=== PATIENT | female | born 1960 | race Caucasian/White ===

== ENCOUNTER → 2022-03-18 | Emergency (ER) | payer BC, MEDICAID ==
[~2022-03-18] VITALS: Ht 162.6 cm; Wt 61.4 kg
[~2022-03-18] MED LIST: CYCL-1 PO; ketorolac trometh. 30mg/ml inj. IM ONE; ketorolac tromethamine 15mg/ml inj. IM ONE
[2022-03-18 11:04] VITALS: BP 131/72
== END | disposition home or self-care (01) ==
LOC: ER 10:10
DX: M79.604 Pain in right leg (principal); M25.561 Pain in right knee; M54.50 Low back pain, unspecified; G89.29 Other chronic pain; Z88.6 Allergy status to analgesic agent; Z88.0 Allergy status to penicillin; Z79.899 Other long term (current) drug therapy
CPT/HCPCS: 96372; 99284; J1885

== ENCOUNTER 2023-07-18 09:36 | Emergency (ER) | payer BC, MEDICAID ==
[~2023-07-18] VITALS: Ht 165.1 cm; Wt 120.0 kg
[~2023-07-18 09:36] MED LIST changes: -ketorolac trometh. 30mg/ml inj. IM ONE; -ketorolac tromethamine 15mg/ml inj. IM ONE
[2023-07-18 09:44] VITALS: TEMP 97.8
[2023-07-18 10:16] LABS: EOSINOPHILS % (AUTO) 0.2 % (0-6); MEAN PLATELET VOLUME 6.8 FL (7.4-10.4)
[2023-07-18 10:18] LABS: BASOPHILS # (AUTO) 0.1 X10'3 (0-0.2); BASOPHILS % (AUTO) 0.5 % (0-1); HEMATOCRIT 41.9 % (35.0-45.0); MEAN CORPUSCULAR HEMOGLOBIN 30.5 PG (27.0-31.0); MEAN CORPUSCULAR HGB CONC 33.5 g/dL (33.0-36.5); MONOCYTES # (AUTO) 0.5 X10'3 (0-0.9); MONOCYTES % (AUTO) 4.6 % (2-12); NEUTROPHILS # (AUTO) 9.3 X10'3 (1.8-7.7); NEUTROPHILS % (AUTO) 77.7 % (42-75); PLATELET COUNT 569 X10'3 (140-440); RED CELL DISTRIBUTION WIDTH 14.4 % (11.5-14.5)
[2023-07-18 10:26] LABS: ALBUMIN 3.4 G/DL (3.4-5.0); ANION GAP 13 (8-16); BLOOD UREA NITROGEN 13 MG/DL (7-18); BUN/CREATININE RATIO 15.9 (10.0-20.0); CALCIUM 9.3 MG/DL (8.5-10.1); CHLORIDE 101 MMOL/L (99-107); CREATININE 0.82 MG/DL (0.40-0.90); GLUCOSE 161 MG/DL (70-104); POTASSIUM 3.4 MMOL/L (3.5-5.1); SODIUM 140 MMOL/L (135-145); TOTAL CARBON DIOXIDE 26.4 MMOL/L (24-32); eCRCL 64 ML/MIN; eGFR 71 ML/MIN
[2023-07-18 13:41] LABS: BILIRUBIN,URINE NEGATIVE (Neg); COLOR,URINE YELLOW (Yellow); GLUCOSE, URINE NEGATIVE (Neg); KETONES,URINE NEGATIVE (Neg); LEUKOCYTE ESTERASE ,URINE NEGATIVE (Neg); NITRITES, URINE NEGATIVE (Neg); OCCULT BLOOD,URINE NEGATIVE (Neg); PH,URINE 6.5 (4.8-8.0); PROTEIN,URINE 30 mg/dl (Neg); UROBILINOGEN,URINE 0.2 E.U/dL (0.2-1.0)
[2023-07-18 13:44] LABS: CLARITY,URINE SLIGHTLY CLOUDY (Clear); UA COLLECTION TYPE VOIDED
[2023-07-18 13:50] LABS: RBC,URINE NONE SEEN /HPF (0-2)
[2023-07-18 13:51] LABS: BACTERIA,URINE FEW /HPF (Neg); MUCUS STRANDS FEW /LPF (Neg); SQUAMOUS EPITHELIAL CELL,UR FEW /LPF (FEW)
[2023-07-18 13:58] LABS: URINE AMPHETAMINE SCREEN POSITIVE (Neg); URINE BARBITUATE SCREEN NEGATIVE (Neg); URINE BENZODIAZEPINES SCREEN NEGATIVE (Neg); URINE CANNABINOID SCREEN NEGATIVE (Neg); URINE COCAINE SCREEN NEGATIVE (Neg); URINE METHADONE SCREEN NEGATIVE (Neg); URINE OPIATE SCREEN NEGATIVE (Neg); URINE PHENCYCLIDINE SCREEN NEGATIVE (Neg)
[2023-07-18] MEDS ORDERED: CEFD300C3 PO (14:22)
[2023-07-18 16:25] VITALS: BP 139/76; PULSE 71; RESP 18; O2SAT 98
== END 2023-07-18 16:00 | disposition home or self-care (01) ==
LOC: ER 09:37
DX: N39.0 Urinary tract infection, site not specified (principal); Z88.0 Allergy status to penicillin; Z88.8 Allergy status to other drugs, medicaments and biological substances; G89.29 Other chronic pain; M54.9 Dorsalgia, unspecified; Z90.710 Acquired absence of both cervix and uterus; Z59.00 Homelessness unspecified
CPT/HCPCS: 36415; 80048; 80305; 81001; 85025; 93005; 99284

== ENCOUNTER 2023-11-04 09:56 | Emergency (ER) | payer BC, MEDICAID ==
[~2023-11-04] VITALS: Ht 165.1 cm; Wt 50.0 kg
[2023-11-04] MEDS: TETanus/Pertussis (Acell)/Diphther VAC/PF (Tdap-Adult) 0.5ml syringe IMVAC ONE (10:56)
[2023-11-04] MEDS ORDERED: SULF1TAB49 PO (11:13)
[2023-11-04 11:47] VITALS: BP 148/92; PULSE 92; RESP 16; TEMP 97.8; O2SAT 99
== END 2023-11-04 11:51 | disposition home or self-care (01) ==
LOC: ER 09:57
DX: S60.421A Blister (nonthermal) of left index finger, initial encounter (principal); G89.29 Other chronic pain; M54.9 Dorsalgia, unspecified; Z90.710 Acquired absence of both cervix and uterus; Z72.89 Other problems related to lifestyle; Z98.890 Other specified postprocedural states; Z59.00 Homelessness unspecified; Z56.0 Unemployment, unspecified; Z88.8 Allergy status to other drugs, medicaments and biological substances; Z88.0 Allergy status to penicillin; X58.XXXA Exposure to other specified factors, initial encounter; Y93.89 Activity, other specified; Y92.89 Other specified places as the place of occurrence of the external cause; Y99.8 Other external cause status
CPT/HCPCS: 10060; 87070; 87077; 87186; 90471; 90715; 99283

== ENCOUNTER 2024-07-15 17:40 | Emergency (ER) | payer BC, MEDICAID ==
[~2024-07-15] VITALS: Ht 167.6 cm; Wt 50.0 kg
--- NOTE | 2024-07-15 19:45 | Physician Documentation ---
History of Present Illness ~ Chief Complaint: Knee Pain Stated Complaint: RT KNEE PAIN/BACK PAIN Time Seen by MD: 19:08 OK to notify your PCP?: Yes Primary Medical Doctor: NONE Source: patient Mode of Arrival: POV Exam Limitations: no limitations HPI This is a 63-year-old female who comes in complaining of right knee pain. The patient states this has been an ongoing issue for the past six years and she was had multiple injuries to the area. She was at [facility] a few nights ago in his states nothing it was done. She has pain with ambulation and bending of the knee secondary to pain. She also states she has a hard time sleeping because of the pain. Tetanus witin 5 years: No Medication Reconciliation Allergies: Coded Allergies: NSAIDS (Non-Steroidal Anti-Inflamma (Verified Allergy, Unknown, UPSET STOMACH, 03/18/22) Penicillins (Verified Allergy, Unknown, 03/18/22) aspirin (Verified Allergy, Unknown, 03/18/22) ibuprofen (Verified Allergy, Unknown, UPSET STOMACH, 03/18/22) Scheduled PRN Cyclobenzaprine* (Cyclobenzaprine*), 1 TAB PO Q8H PRN for pain Past Medical History Past Medical History: Chronic Back Pain Past Surgical History: noncontributory, other Other Past Surgical History: Umbilical hernia repair and partial hysterectomy years ago Alcohol Use: Occasionally Drug Use: none Lives In: Homeless Occupation: unemployed Physical Exam Vital Signs: Temperature: 98.2, Source: Temporal, Heart Rate: 82, Respiratory Rate: 14, BP: 118/64, Pulse Oximetry: 92, Weight: 50.000 Oxygen Flow Rate: 0 Pulse Oximetry Reflects: adequate oxygenation General Appearance: alert, WD/WN, no apparent distress Knees To inspection of the right knee there is an obvious large joint effusion. Positive balloon sign. No change in overlying skin color or temperature. The knee isn't warm to palpation. This deformity to palpation of the mediolateral joint line. Patella tendon is intact and patellas an appropriate place without crepitus or deformity. Negative Mckayla's. Negative laxity or tenderness with valgus varus stress. Procedures Procedures Right knee joint aspiration Ultrasound Procedure Note After verbal consent from the patient understood draped, prepped in sterile procedure I found my landmark measuring 1 cm up and 1 cm lateral from the lateral curvature of the patella. I marked with the area and cleansed the outer skin with a Betadine swabs x3. I anesthetized the overlying skin with 1% lidocaine with epinephrine. I then introduced a 18 gauge needle into the knee and aspirated 85 cc of clear straw-colored fluid. I then covered with the puncture wound with a Band-Aid and wrapped the knee in an Gus wrap. The patient tolerated the procedure well and got immediate relief from pain. Progress Results/Orders Reviewed/noted all lab results: Yes Results/Orders Orders - THOMAS DAVIS Laceration/I&D Tray Set Up (07/15/24 19:41) Completed Orders - THOMAS DAVIS Lidocaine 1% W/Epi 1:100,000 (Xylocaine (07/15/24 19:45) Medications Received in ER Medications (Trade) Dose Ordered Sig/Stephany Route PRN Reason Start Time Stop Time Status Last Admin Dose Admin (Xylocaine 1%-EPI 1:100,000) 20 ml ONCE ONCE SQ 07/15/24 19:45 07/15/24 19:46 DC 07/15/24 19:54 20 ML Vital Signs 07/15/24 17:46 Temp 98.2 Pulse 82 Resp 14 B/P (MAP) 118/64 Pulse Ox 92 O2 Flow Rate 0 Medical Decision Making Findings I aspirated 85 cc of clear straw-colored fluid from the knee. I did not send it off for joint analysis as this has been an ongoing issue for the patient and there was nothing to indicate infection or even gout at this point. There was no overlying erythema or warmth of the skin. The patient got relief from pain. I placed a Band-Aid over the puncture wound and wrapped with a need an Gus wrap. I instructed the patient was take Tylenol for her pain as she states she is all ergic to NSAIDs. Elevate the knee frequently and apply warm compresses. Follow up with the primary care physician for recheck in the next one or two days and return to the ER for any worsening or acute issues. Additional Comment Chronic right knee pain. Osteoarthritis of the right knee. Internal derangement of the right knee. Meniscus injury of the right knee. Right knee effusion. Septic arthritis. Gout. Pseudogout Departure Disposition: 01 HOME / SELF CARE / HOMELESS Impression: Primary Impression: Effusion of knee Condition: Stable Discharge Instructions: Knee Effusion Additional Instructions: Keep the Gus wrap on for compression. Take Tylenol for discomfort. Elevate the knee frequently and apply warm compresses to the area. Follow up with the primary care physician for recheck in the next couple of days and return to the ER for any worsening or concerning symptoms. Referrals: NO PRIMARY CARE PROVIDER (PCP) Signature Scribe Signature: No scribe Attestation: The note accurately reflects work and decisions made by me.Thomas THOMPSON 07/15/24 20:31 THOMAS DAVIS Jul 15, 2024 19:45
[2024-07-15] MEDS: LIDOcaine 1% W/epiNEPHrine 1:100,000 20ml vial SQ ONE (19:54)
[2024-07-15 21:13] VITALS: BP 116/62; PULSE 80; RESP 18; TEMP 98.6; O2SAT 99
== END 2024-07-15 21:14 | disposition home or self-care (01) ==
LOC: ER 17:41
DX: M25.461 Effusion, right knee (principal); Z88.0 Allergy status to penicillin; Z88.6 Allergy status to analgesic agent
CPT/HCPCS: 20610; 99284; J3490; A6449

== ENCOUNTER 2024-07-22 17:24 | Emergency (ER) | payer BC, MEDICAID ==
[~2024-07-22] VITALS: Ht 162.6 cm; Wt 53.0 kg
[2024-07-22 17:26] VITALS: BP 140/73; PULSE 86; RESP 16; O2SAT 99
[2024-07-22] MEDS ORDERED: LIDO700A32 TD (18:56)
--- NOTE | 2024-07-22 18:56 | Physician Documentation ---
History of Present Illness General Chief Complaint: Knee Pain Stated Complaint: KNEE PAIN Time Seen by MD: 17:50 Primary Medical Doctor: NONE History of Present Illness Initial Comments 63-YEAR-OLD FEMALE WHO PRESENTS TO THE EMERGENCY DEPARTMENT FOR EVALUATION AND REQUEST OF A SCOOTER. SHE RESIDES AT [facility] AND IS FRUSTRATED WITH THE PROCESS FOR HER TO OBTAIN A [facility]OT[facility] FROM [facility]. SHE HAS A WHEELCHAIR. SHE STATES THAT THE PROCESS IS TO LONG SHE IS TIRED OF WAITING. SHE IS AWAITING TO SEE ORTHOPEDICS FOR CONSIDERATION OF KNEE SURGERY AND/OR PROCEDURAL CARE FOR CHRONIC RIGHT KNEE PAIN. THERE HAS BEEN NO REPORTED FEVER, RASH OR NEW INJURY. Medication Reconciliation Allergies: Coded Allergies: NSAIDS (Non-Steroidal Anti-Inflamma (Verified Allergy, Unknown, UPSET STOMACH, 03/18/22) Penicillins (Verified Allergy, Unknown, 03/18/22) aspirin (Verified Allergy, Unknown, 03/18/22) ibuprofen (Verified Allergy, Unknown, UPSET STOMACH, 03/18/22) Scheduled Lidocaine (Lidoderm), 1 PATCH TD DAILY Scheduled PRN Cyclobenzaprine* (Cyclobenzaprine*), 1 TAB PO Q8H PRN for pain Past Medical History Past Medical History: Chronic Back Pain Past Surgical History: noncontributory, other Other Past Surgical History: Umbilical hernia repair and partial hysterectomy years ago Alcohol Use: Occasionally Drug Use: none Lives In: Homeless Occupation: unemployed Physical Exam Physical Exam Vital Signs: Temperature: 98.4, Source: Oral, Heart Rate: 86, Respiratory Rate: 16, BP: 140/73, Pulse Oximetry: 99, Weight: 53.000 Oxygen Flow Rate: 0 General Appearance: alert, WD/WN, mild distress Pupils/EOM/Fundus: PERRLA Respiratory: normal breath sounds Chest: no accessory muscle use Cardiovascular: regular rate, rhythm Extremities: normal range of motion, other (GLOBAL TENDERNESS OF THE RIGHT KNEE WITHOUT LAXITY AND/OR ERYTHEMA OR EFFUSION) Neurologic: oriented x4 Motor / Sensory: no motor deficit, no sensory deficit Psychiatric: normal mood/affect Skin: normal color, warm/dry; No: rash Progress Results/Orders Results/Orders Orders - ROSETTE WREN Ortho Orders (07/22/24 ) Completed Orders - ROSETTE WREN PAC Lidocaine 5% Patch (Lidoderm 5% Patch) (07/23/24 08:00) Vital Signs 07/22/24 07/22/24 17:26 19:10 Temp 98.4 98.4 Pulse 86 Resp 16 B/P (MAP) 140/73 Pulse Ox 99 O2 Flow Rate 0 Medical Decision Making Differential Diagnosis MEDICAL SCREENING EXAMINATION COMPLETED. PATIENT ADVISED TO FOLLOW UP WITH THE ADMISSIONS RESOURCES REGARDING [facility] AND REFERRAL TO ORTHOPEDICS. PROVIDED HER WITH PAIN MANAGEMENT IN THE FORM OF LIDODERM PATCH AND GUS WRAP. IN THE EMERGENCY DEPARTMENT IS DOES NOT HAVE ARTICULATED KNEE BRACES FOR WHICH SHE MIGHT BENEFIT FROM. THERE WAS NO CLINICAL SUSPICION FOR A SEPTIC KNEE OR JOINT EFFUSION. SHE WAS DISCHARGED TO FOLLOW UP WITH [facility] THE [facility]. SHE HAS BEEN PROVIDED LITERATURE. SHE WAS SAFELY DISCHARGED IN THE EMERGENCY DEPARTMENT. Departure Disposition: HOME / SELF CARE / HOMELESS Impression: Primary Impression: Homelessness unspecified Additional Impression: Knee pain Qualified Codes: M25.561 - Pain in right knee Condition: Stable Discharge Instructions: Acute Knee Pain, Adult Additional Instructions: Please present to the [facility] for evaluation by the ED physician and co nsideration referral to orthopedist for further management evaluation of chronic right knee pain. Please apply topical Lidoderm patches for comfort and use your Gus wrap for support. Thank you for visiting the emergency department with [facility]. Referrals: NO PRIMARY CARE PROVIDER (PCP) Prescriptions Lidocaine (Lidoderm) 5 % Adh..patch 1 PATCH TD DAILY, #10 BOXS Apply 1 patch daily for 12 hours then off for 12 hours May sub 15 grams 4 pct lidocaine cream if patches are cost peohibitive Prov: ROSETTE WREN PAC 07/22/24 Education Educated: Patient Educated regarding: diagnosis, treatment Signature Scribe Signature: . Attestation: . ROSETTE WREN PAC July 22, 2024 18:56
[2024-07-22 19:10] VITALS: TEMP 98.4
[2024-07-23] MEDS ORDERED: LIDOcaine 5% patch TP SCH (08:00)
== END 2024-07-22 19:15 | disposition home or self-care (01) ==
LOC: ER 17:25
DX: M25.562 Pain in left knee (principal); Z59.00 Homelessness unspecified; Z88.0 Allergy status to penicillin; Z88.6 Allergy status to analgesic agent
CPT/HCPCS: 99283; A6449

== ENCOUNTER 2024-07-30 00:06 | Emergency (ER) | payer BC, MEDICAID ==
[~2024-07-30] VITALS: Ht 165.1 cm; Wt 45.2 kg
[~2024-07-30 00:06] MED LIST changes: +LIDO700A32 TD
[2024-07-30 00:19] VITALS: BP 166/94; PULSE 95; RESP 18; TEMP 98.2; O2SAT 98
== END 2024-07-30 03:01 | disposition left against medical advice (07) ==
LOC: ER 00:07
DX: M54.50 Low back pain, unspecified (principal); Z88.0 Allergy status to penicillin; Z88.8 Allergy status to other drugs, medicaments and biological substances; Z88.6 Allergy status to analgesic agent; Z53.21 Procedure and treatment not carried out due to patient leaving prior to being seen by health care provider
CPT/HCPCS: 99281

== ENCOUNTER 2024-08-07 14:30 | Emergency (ER) | payer BC, MEDICAID | END 2024-08-07 15:32 | disposition left against medical advice (07) | LOC: ER 14:30 | DX: M54.9 Dorsalgia, unspecified (principal); R19.7 Diarrhea, unspecified; Z88.0 Allergy status to penicillin; Z88.6 Allergy status to analgesic agent; Z88.8 Allergy status to other drugs, medicaments and biological substances; Z53.21 Procedure and treatment not carried out due to patient leaving prior to being seen by health care provider ==

== ENCOUNTER 2024-08-16 15:33 | Emergency (ER) | payer BC, MEDICAID ==
[~2024-08-16] VITALS: Ht 160 cm; Wt 50.0 kg
[2024-08-16 15:44] VITALS: BP 151/87; PULSE 95; RESP 15; O2SAT 99
== END 2024-08-16 18:34 | disposition left against medical advice (07) ==
LOC: ER 15:34
DX: M54.9 Dorsalgia, unspecified (principal); Z88.0 Allergy status to penicillin; Z88.6 Allergy status to analgesic agent; Z88.8 Allergy status to other drugs, medicaments and biological substances; Z53.21 Procedure and treatment not carried out due to patient leaving prior to being seen by health care provider